=== PATIENT | female | born 1995 | race Hispanic/Latino ===

== ENCOUNTER 2022-03-19 06:43 | Emergency (ER) | payer BC ==
[~2022-03-19] VITALS: Ht 160 cm; Wt 64.0 kg
[2022-03-19 08:19] LABS: APPEARANCE,URINE CLEAR (CLEAR); BILIRUBIN,URINE NEGATIVE (NEGATIVE); COLOR,URINE YELLOW (YELLOW); GLUCOSE, URINE (UA) NEGATIVE (NEGATIVE); KETONES,URINE NEGATIVE (NEGATIVE); LEUKOCYTE ESTERASE ,URINE NEGATIVE Leu/uL (NEGATIVE); NITRATE,URINE NEGATIVE (NEGATIVE); OCCULT BLOOD,URINE NEGATIVE (NEGATIVE); PROTEIN,URINE NEGATIVE (NEGATIVE)
[2022-03-19 08:26] LABS: HCG,QUALITATIVE URINE NEGATIVE (NEGATIVE)
[2022-03-19 08:56] VITALS: BP 126/88
[2022-03-19] MEDS ORDERED: AMOX500C2 PO (09:01)
[2022-03-19] MEDS ORDERED: PRED5TAB PO (09:01)
[2022-03-19 09:11] LABS: BACTERIA,URINE Few /HPF (None Seen); RBC,URINE 0-1 /HPF (0-1); WBC,URINE None Seen /HPF (0-1)
[2022-03-19 09:12] LABS: SQUAMOUS EPITHELIAL CELL,UR 0-2 /HPF (0-2)
== END 2022-03-19 09:36 | disposition home or self-care (01) ==
LOC: EDH 06:43
DX: R59.0 Localized enlarged lymph nodes (principal); F41.9 Anxiety disorder, unspecified
CPT/HCPCS: 99283; 87635; 87880; 87804 ×2; 81001; 81025; C9803